=== PATIENT | female | born 1980 | race Two or more races ===

== ENCOUNTER 2025-04-03 13:04 | Emergency (ER) | payer OTHER ==
[~2025-04-03] VITALS: Ht 167.6 cm; Wt 54.4 kg
[2025-04-03 14:51] VITALS: BP 120/61; TEMP 98; O2SAT 98
== END 2025-04-03 14:53 | disposition home or self-care (01) ==
LOC: ER 13:11
DX: F10.129 Alcohol abuse with intoxication, unspecified (principal); E11.9 Type 2 diabetes mellitus without complications; Z60.2 Problems related to living alone; Y90.9 Presence of alcohol in blood, level not specified

== ENCOUNTER 2025-06-26 13:38 | Emergency (ER) | payer OTHER ==
[~2025-06-26] VITALS: Ht 162.6 cm; Wt 49.9 kg
[2025-06-26 14:03] LABS: PLATELET COUNT (AUTO) 480 K/uL (150-450); RED BLOOD CELL COUNT(AUTO) 4.87 MIL/uL (4.0-5.2); RED CELL DISTRIBUTION WIDTH 12.8 % (11.5-15.0); WHITE BLOOD COUNT (AUTO) 10.7 K/uL (4.3-11.0)
[2025-06-26 14:13] LABS: CALCIUM, SERUM 8.1 mg/dL (8.5-10.1); CREATININE 0.6 mg/dL (0.6-1.3); SODIUM SERUM 140 mmol/L (136-145); UREA NITROGEN, BLOOD 11 mg/dL (7-18)
[2025-06-26 14:20] LABS: ASPARTATE AMINOTRANSFERASE 131 U/L (15-37); TOTAL PROTEIN, SERUM 7.4 g/dL (6.4-8.2)
[2025-06-26 15:53] LABS: APPEARANCE,URINE CLEAR (CLEAR); BLOOD, URINE NEGATIVE Ery/uL (NEGATIVE); LEUKOCYTE ESTERASE ,URINE NEGATIVE (NEGATIVE); NITRITE, URINE NEGATIVE (NEGATIVE); UGLUCOSE NEGATIVE (NEGATIVE)
[2025-06-26 15:54] LABS: AMPHETAMINE, URINE NEGATIVE (NEGATIVE); BARBITURATE, URINE NEGATIVE (NEGATIVE); BENZODIAZEPINE, URINE NEGATIVE (NEGATIVE); CANNABINOID, URINE NEGATIVE (NEGATIVE); COCCAINE, URINE NEGATIVE (NEGATIVE); OPIATE, URINE NEGATIVE (NEGATIVE)
[2025-06-26] MEDS ORDERED: OLANZAPINE 5 MG TABLET ONE (16:09)
[2025-06-26] MEDS: OLANZAPINE ZYDIS 5 MG TAB.RAPDIS PO ONE (16:20)
[2025-06-26] MEDS ORDERED: LORAZEPAM INJ 2 MG/ML VIAL ONE (16:47)
[2025-06-26] MEDS: LORAZEPAM INJ 2 MG/ML VIAL IM ONE (16:57)
[2025-06-26] MEDS ORDERED: OLANZAPINE 10 MG VIAL IM ONE (17:24)
[2025-06-26] MEDS: OLANZAPINE 10 MG VIAL IM ONE (17:30)
[2025-06-26 18:02] LABS: ADD URINE CULTURE NO; SQUAMOUS EPITHELIAL CELL,UR 0-2 /HPF (None Seen)
[2025-06-27 03:34] VITALS: BP 133/68; TEMP 98.2; O2SAT 99
== END 2025-06-27 03:35 | disposition home or self-care (01) ==
LOC: ER 13:49
DX: F10.129 Alcohol abuse with intoxication, unspecified (principal); E11.9 Type 2 diabetes mellitus without complications; Z79.899 Other long term (current) drug therapy; Y90.9 Presence of alcohol in blood, level not specified
CPT/HCPCS: 99285; 96372; 85025; 80048; 80076; 81001; 36415; 80143; 80320 ×2; 80307; J2060; J1200; J3490; G0480

== ENCOUNTER 2025-07-05 15:22 | Emergency (ER) | payer OTHER ==
[~2025-07-05] VITALS: Ht 162.6 cm; Wt 50.3 kg
[2025-07-05] MEDS: THIAMINE HCL 100 MG TABLET PO ONE (16:00)
[2025-07-05] MEDS: FOLIC ACID 1 MG TABLET PO ONE (16:00)
[2025-07-05 16:02] LABS: PLATELET COUNT (AUTO) 443 K/uL (150-450); RED BLOOD CELL COUNT(AUTO) 4.01 MIL/uL (4.0-5.2); RED CELL DISTRIBUTION WIDTH 13.0 % (11.5-15.0); WHITE BLOOD COUNT (AUTO) 5.5 K/uL (4.3-11.0)
[2025-07-05 16:11] LABS: CALCIUM, SERUM 8.2 mg/dL (8.5-10.1); CREATININE 0.4 mg/dL (0.6-1.3); SODIUM SERUM 145 mmol/L (136-145); UREA NITROGEN, BLOOD 5 mg/dL (7-18)
[2025-07-05 16:15] LABS: ASPARTATE AMINOTRANSFERASE 113 U/L (15-37); TOTAL PROTEIN, SERUM 6.8 g/dL (6.4-8.2)
[2025-07-05] MEDS: ONDANSETRON HCL/PF 4 MG/2 ML VIAL IV ONE (16:47)
[2025-07-05] MEDS: IV NS 0.9% 1,000 ML BAG IV ONE (16:47)
[2025-07-05] MEDS ORDERED: LORAZEPAM INJ 2 MG/ML VIAL ONE (18:13)
[2025-07-05] MEDS ORDERED: HALOPERIDOL LACTATE INJ 5 MG/ML VIAL ONE (18:13)
[2025-07-05] MEDS: LORAZEPAM INJ 2 MG/ML VIAL IV ONE (18:20)
[2025-07-05] MEDS: HALOPERIDOL LACTATE INJ 5 MG/ML VIAL IV ONE (18:26)
[2025-07-05 20:53] LABS: APPEARANCE,URINE CLEAR (CLEAR); BLOOD, URINE NEGATIVE Ery/uL (NEGATIVE); LEUKOCYTE ESTERASE ,URINE NEGATIVE (NEGATIVE); NITRITE, URINE NEGATIVE (NEGATIVE); UGLUCOSE NEGATIVE (NEGATIVE)
[2025-07-05 20:56] LABS: PREGNANCY TEST URINE QUAL NEGATIVE (NEGATIVE)
[2025-07-05 20:59] LABS: AMPHETAMINE, URINE NEGATIVE (NEGATIVE); BARBITURATE, URINE NEGATIVE (NEGATIVE); BENZODIAZEPINE, URINE NEGATIVE (NEGATIVE); COCCAINE, URINE NEGATIVE (NEGATIVE); OPIATE, URINE NEGATIVE (NEGATIVE)
[2025-07-05 21:01] LABS: CANNABINOID, URINE POSITIVE (NEGATIVE)
[2025-07-06 05:43] VITALS: BP 107/73; TEMP 98.2; O2SAT 100
== END 2025-07-06 05:43 | disposition home or self-care (01) ==
LOC: ER 15:26
DX: F10.229 Alcohol dependence with intoxication, unspecified (principal); E11.9 Type 2 diabetes mellitus without complications; Z79.899 Other long term (current) drug therapy; Y90.8 Blood alcohol level of 240 mg/100 ml or more
CPT/HCPCS: 99285; 96374; 96361; 96375; 85025; 80048; 80076; 84703; 81003; 36415 ×2; 80143; 80320 ×2; 80307; J2060; J1200; J1630; J2405; J7030; G0480

== ENCOUNTER 2025-07-22 21:38 | Emergency (ER) | payer OTHER ==
[~2025-07-22] VITALS: Ht 162.6 cm; Wt 53.5 kg
--- NOTE | 2025-07-22 21:44 | NUR ---
[id number] FROM ROSCOE ETOH
[2025-07-22] MEDS: IV LR 1000 ML 1,000 ML IV ONE (23:15)
[2025-07-22 23:23] LABS: PLATELET COUNT (AUTO) 734 K/uL (150-450); RED BLOOD CELL COUNT(AUTO) 5.14 MIL/uL (4.0-5.2); RED CELL DISTRIBUTION WIDTH 14.5 % (11.5-15.0); WHITE BLOOD COUNT (AUTO) 8.4 K/uL (4.3-11.0)
[2025-07-22 23:28] LABS: CALCIUM, SERUM 9.0 mg/dL (8.5-10.1); CREATININE 0.6 mg/dL (0.6-1.3); SODIUM SERUM 136 mmol/L (136-145); UREA NITROGEN, BLOOD 7 mg/dL (7-18)
[2025-07-22 23:36] LABS: ALCOHOL, BLOOD 381 mg/dL (0-10); ASPARTATE AMINOTRANSFERASE 39 U/L (15-37); TOTAL PROTEIN, SERUM 8.7 g/dL (6.4-8.2)
[2025-07-23] MEDS ORDERED: HALOPERIDOL LACTATE INJ 5 MG/ML VIAL ONE (00:02)
[2025-07-23] MEDS ORDERED: LORAZEPAM INJ 2 MG/ML VIAL ONE (00:02)
[2025-07-23] MEDS: HALOPERIDOL LACTATE INJ 5 MG/ML VIAL IM ONE (00:05)
[2025-07-23] MEDS: LORAZEPAM INJ 2 MG/ML VIAL IM ONE (00:05)
--- NOTE | 2025-07-23 00:41 | NUR ---
Turner - [phone] - Brother in Law of the Patient.
[2025-07-23 02:05] VITALS: TEMP 97.7
[2025-07-23 03:39] LABS: ALCOHOL, BLOOD 320 mg/dL (0-10); PREGNANCY TEST SERUM QUAN 0 mIU/mL (0-6)
--- NOTE | 2025-07-23 07:35 | NUR ---
IV removed. Catheter intact and site benign. Pressure and 4x4 applied to site. No bleeding noted.
--- NOTE | 2025-07-23 07:36 | NUR ---
CONTACTED MEGHNA ([id number]) TO SHIPPING CLERK CRATING PT; STATED ETA 10-15 MIN
--- NOTE | 2025-07-23 07:37 | NUR ---
Patient discharged to home in stable condition. Written and verbal after care instructions given. Patient verbalizes understanding of instruction. Patient ambulatory with steady gait. Properly clothed.
[2025-07-23 07:42] VITALS: BP 121/82; O2SAT 96
== END 2025-07-23 07:40 | disposition home or self-care (01) ==
LOC: ER 21:39
DX: F10.129 Alcohol abuse with intoxication, unspecified (principal); E11.9 Type 2 diabetes mellitus without complications; Y90.9 Presence of alcohol in blood, level not specified
CPT/HCPCS: 99285; 96360; 85025; 80048; 80076; 36415 ×2; 80143; 80320 ×3; 96372 ×2; 84702; J7120; J2060; J1200; J1630; G0480